=== PATIENT | male | born 1945 | race Caucasian/White ===

== ENCOUNTER 2016-09-03 01:46 | Emergency (ER) | payer MEDICARE ==
[~2016-09-03] VITALS: Ht 170.2 cm; Wt 67.4 kg
[2016-09-03 01:51] VITALS: BP 162/87; PULSE 52; RESP 16; TEMP 96.8; O2SAT 100
[2016-09-03 02:02] VITALS: BP 157/78; PULSE 51; RESP 18; TEMP 96.8; O2SAT 100
[2016-09-03] MEDS ORDERED: SODIUM CHLOR 0.9% 1000 ML INJ 1,000 ML IV SCH ×2 (02:04→03:00)
[2016-09-03 02:10] VITALS: O2SAT 100
[2016-09-03 02:14] LABS: AUTOMATED NEUTROPHIL # 6.4 TH/MM3 (1.8-7.7); BASOPHIL # 0.1 TH/MM3 (0-0.2); BASOPHIL % 0.7 % (0.0-2.0); EOSINOPHIL # 0.4 TH/MM3 (0-0.4); HEMATOCRIT 43.4 % (39.0-51.0); HEMO FLAGS DIFF FINAL; LYMPH % 26.8 % (9.0-44.0); LYMPHOCYTE # 2.8 TH/MM3 (1.0-4.8); MEAN CELL VOLUME 84.6 FL (80.0-100.0); MEAN CORPUSCULAR HEMOGLOBIN 27.9 PG (27.0-34.0); MEAN CORPUSCULAR HGB CONC 32.9 % (32.0-36.0); MONO % 7.3 % (0.0-8.0); NEUT % 61.2 % (16.0-70.0); PLATELET COUNT 252 TH/MM3 (150-450); RED BLOOD COUNT 5.14 MIL/MM3 (4.50-5.90); RED CELL DISTRIBUTION WIDTH 13.5 % (11.6-17.2); WHITE BLOOD COUNT 10.5 TH/MM3 (4.0-11.0)
[2016-09-03] MEDS ORDERED: SODIUM CHLORIDE 0.9% FLUSH 10 ML FLUSH IV FLUSH PRN (02:15)
[2016-09-03] MEDS ORDERED: PROCHLORPERAZINE INJ 10 MG/2 ML VIAL IV PUSH ONE (02:15)
[2016-09-03] MEDS ORDERED: MECLIZINE HCL 25 MG TAB PO ONE (02:15)
[2016-09-03 02:22] LABS: CHLORIDE 107 MEQ/L (98-107); POTASSIUM 3.5 MEQ/L (3.5-5.1); SODIUM (NA) 143 MEQ/L (136-145)
[2016-09-03] MEDS ORDERED: FINA5TAB2 PO (02:24)
[2016-09-03] MEDS ORDERED: ATOR20TA15 PO (02:24)
[2016-09-03] MEDS ORDERED: DOXA1TAB34 PO (02:24)
[2016-09-03 02:25] LABS: ANION GAP 8 MEQ/L (5-15); BICARBONATE 27.8 MEQ/L (21.0-32.0)
[2016-09-03 02:26] LABS: BLOOD UREA NITROGEN 12 MG/DL (7-18)
[2016-09-03 02:28] LABS: ALT (GPT) 68 U/L (12-78); AST (GOT) 96 U/L (15-37); GLOMERULAR FILTRATION RATE 86 ML/MIN (>89)
[2016-09-03 02:30] LABS: TOTAL BILIRUBIN ADULT 0.4 MG/DL (0.2-1.0)
[2016-09-03] MEDS ORDERED: LORazepam 2 MG/ML VIAL IV PUSH ONE (02:30)
[2016-09-03 02:31] LABS: ALKALINE PHOSPHATASE 115 U/L (45-117)
--- NOTE | 2016-09-03 02:51 | PD ---
HPI Chief Complaint: Dizziness Time Seen by Provider: 02:01 Travel History International Travel<30 days: No Contact w/Intl Traveler<30days: No Traveled to known affect area: No History of Present Illness HPI The patient is a 71-year-old male that experienced tinnitus at 3 PM yesterday. He denies any other focal neurologic change. The patient has a very minimal headache. He does experience tinnitus from time to time and has experienced tinnitus yesterday and, to a lesser extent, now. He denies any hearing loss. He has enjoyed excellent health. He denies any history of diabetes. He denies any chest pain or shortness of breath. He denies any ear pain. He states he always has a slow heartbeat. PFSH Past Medical History Cardiovascular Problems: Yes High Cholesterol: Yes Diminished Hearing: No Genitourinary: Yes (prostate) Hypertension: Yes Tetanus Vaccination: Unknown Influenza Vaccination: No Past Surgical History Appendectomy: Yes Social History Alcohol Use: No Tobacco Use: No Substance Use: No Allergies-Medications (Allergen,Severity, Reaction): Coded Allergies: No Known Allergies (Unverified , 09/03/16) Reported Meds & Prescriptions Reported Meds & Active Scripts Active Meclizine (Meclizine HCl) 25 Mg Tab 25 Mg PO TID PRN Ativan (Lorazepam) 1 Mg Tab 1 Mg PO Q8H PRN Prochlorperazine Maleate 10 Mg Tab 10 Mg PO Q6H PRN Reported Finasteride 5 Mg Tab 5 Mg PO DAILY Do not crush. Atorvastatin (Atorvastatin Calcium) 20 Mg Tab 20 Mg PO HS Doxazosin (Doxazosin Mesylate) 4 Mg Tab 4 Mg PO DAILY Review of Systems Except as stated in HPI: all other systems reviewed are Neg Physical Exam Narrative GENERAL: The patient is alert, oriented 3 in moderate apparent distress with his vertigo. He holds his head rigidly still. His vital signs show blood pressure 162/87 with a pulse of 52 but are otherwise normal. SKIN: Focused skin assessment warm/dry. HEAD: Atraumatic. Normocephalic. EYES: Pupils equal and round. No scleral icterus. No injection or drainage. ENT: No nasal bleeding or discharge. Mucous membranes pink and moist. The canals are clear and the tympanic membranes are clear. The patient has nystagmus was simply looking to one side, modified Hallpike maneuver was not done because was not necessary. It would have caused him considerable discomfort. NECK: Trachea midline. No JVD. CARDIOVASCULAR: Regular rate and rhythm. No murmur appreciated. RESPIRATORY: No accessory muscle use. Clear to auscultation. Breath sounds equal bilaterally. GASTROINTESTINAL: Abdomen soft, non-tender, nondistended. Hepatic and splenic margins not palpable. MUSCULOSKELETAL: No obvious deformities. No clubbing. No cyanosis. No edema. NEUROLOGICAL: Awake and alert. No obvious cranial nerve deficits. Motor grossly within normal limits. Normal speech and gait. PSYCHIATRIC: Appropriate mood and affect; insight and judgment normal. Data Data Last Documented VS Vital Signs Date Time Temp Pulse Resp B/P Pulse Ox O2 Delivery O2 Flow Rate FiO2 09/03/16 03:59 51 18 156/76 100 Room Air 09/03/16 02:02 96.8 Orders Complete Blood Count With Diff (09/03/16 02:04) Comprehensive Metabolic Panel (09/03/16 02:04) Iv Access Insert/Monitor (09/03/16 02:04) Ecg Monitoring (09/03/16 02:04) Oximetry (09/03/16 02:04) Sodium Chlor 0.9% 1000 Ml Inj (Ns 1000 M (09/03/16 02:04) Sodium Chloride 0.9% Flush (Ns Flush) (09/03/16 02:15) Prochlorperazine Inj (Compazine Inj) (09/03/16 02:15) Meclizine (Antivert) (09/03/16 02:15) Lorazepam Inj (Ativan Inj) (09/03/16 02:30) Sodium Chlor 0.9% 1000 Ml Inj (Ns 1000 M (09/03/16 03:00) Ct Brain W & W/O Iv Contrast (09/03/16 ) Iohexol 350 Inj (Omnipaque 350 Inj) (09/03/16 03:27) Labs Laboratory Tests Test 09/03/16 02:08 White Blood Count 10.5 TH/MM3 Red Blood Count 5.14 MIL/MM3 Hemoglobin 14.3 GM/DL Hematocrit 43.4 % Mean Corpuscular Volume 84.6 FL Mean Corpuscular Hemoglobin 27.9 PG Mean Corpuscular Hemoglobin 32.9 % Concent Red Cell Distribution Width 13.5 % Platelet Count 252 TH/MM3 Mean Platelet Volume 9.2 FL Neutrophils (%) (Auto) 61.2 % Lymphocytes (%) (Auto) 26.8 % Monocytes (%) (Auto) 7.3 % Eosinophils (%) (Auto) 4.0 % Basophils (%) (Auto) 0.7 % Neutrophils # (Auto) 6.4 TH/MM3 Lymphocytes # (Auto) 2.8 TH/MM3 Monocytes # (Auto) 0.8 TH/MM3 Eosinophils # (Auto) 0.4 TH/MM3 Basophils # (Auto) 0.1 TH/MM3 CBC Comment DIFF FINAL Differential Comment Sodium Level 143 MEQ/L Potassium Level 3.5 MEQ/L Chloride Level 107 MEQ/L Carbon Dioxide Level 27.8 MEQ/L Anion Gap 8 MEQ/L Blood Urea Nitrogen 12 MG/DL Creatinine 0.88 MG/DL Estimat Glomerular Filtration 86 ML/MIN Rate Random Glucose 97 MG/DL Calcium Level 8.5 MG/DL Total Bilirubin 0.4 MG/DL Aspartate Amino Transf 96 U/L (AST/SGOT) Alanine Aminotransferase 68 U/L (ALT/SGPT) Alkaline Phosphatase 115 U/L Total Protein 7.0 GM/DL Albumin 3.5 GM/DL [facility] Medical Decision Making Medical Screen Exam Complete: Yes Emergency Medical Condition: Yes Medical Record Reviewed: Yes Interpretation(s) The CBC is completely normal. The complete metabolic profile shows a GFR of 86 , AST of 96 but is otherwise unremarkable. The CT brain shows no evidence for intracranial hemorrhage, mass effect, mass lesions, edema or extra-axial fluid collections. There is extensive opacification of multiple sinuses, particularly the ethmoid sinuses. Differential Diagnosis Benign positional vertigo, viral labyrinthitis, cerebellopontine angle tumor highly unlikely, electrolyte disorder, anemia, renal insufficiency Narrative Course The patient has no evidence of any viral syndrome that could cause viral labyrinthitis. He appears to have benign positional vertigo. The CT scan shows chronic sinusitis as well. Diagnosis Primary Impression: Benign positional vertigo Additional Impression: Chronic sinusitis Additional Instructions: All the medicines that have prescribed can make you sleepy. Do not combine them with alcohol and be careful about driving on any of these medications. It is intended that you lay in bed, avoid moving your head and ride this out, this may take several days. Follow-up with her primary care physician next week. Scripts Meclizine 25 Mg Tab25 Mg PO TID PRN (VERTIGO) #30 TAB Ref 0 Prov:Jordi Singh MD 09/03/16 Lorazepam (Ativan)1 Mg Tab1 Mg PO Q8H PRN (DIZZINESS) #30 TAB Ref 0 Prov:Jordi Singh MD 09/03/16 Prochlorperazine Maleate 10 Mg Tab10 Mg PO Q6H PRN (NAUSEA OR VOMITING) #30 TAB Ref 0 Prov:Jordi Singh MD 09/03/16 Disposition: 01 DISCHARGE HOME Condition: Stable Jordi Singh MD Sep 03, 2016 02:51
[2016-09-03 03:00] VITALS: BP 157/78; PULSE 50; RESP 18; O2SAT 100
[2016-09-03] MEDS ORDERED: IOHEXOL 350 MG/ML 10 ML VIAL (for RAD DIAG) IV ONE (03:27)
--- NOTE | 2016-09-03 03:38 | RADRPT ---
EXAM DATE/TIME: 09/03/2016 03:11 [facility] COMPARISON: No previous studies available for comparison. INDICATIONS : Dizziness. Evaluate for tumor. IV CONTRAST: 85 cc Omnipaque 350 (iohexol) IV RADIATION DOSE: 64.84 CTDIvol (mGy) MEDICAL HISTORY : Cardiovascular disease. Hypertension. SURGICAL HISTORY : Appendectomy. ENCOUNTER: Initial ACUITY: 1 day PAIN SCALE: 0/10 LOCATION: cranial TECHNIQUE: Multiple contiguous axial images were obtained of the head. Using automated exposure control and adj ustment of the mA and/or kV according to patient size, radiation dose was kept as low as reasonably a chievable to obtain optimal diagnostic quality images. DICOM format image data is available electro nically for review and comparison. FINDINGS: There is no evidence for intracranial hemorrhage, mass effect, mass lesions, edema, or extra-axial fl uid collections. The visualized bony structures appear intact. The ventricles are normal size for t he patient's age. There are no signs of acute infarction for technique. The postcontrast portion is unremarkable. There is extensive opacification of multiple sinuses particularly the ethmoid sinuses. CONCLUSION: Unremarkable study except for chronic sinusitis. Annie Baltazar MD on September 03, 2016 at 3:36 Board Certified Radiologist. This report was verified electronically.
[2016-09-03] MEDS ORDERED: MECL-62 PO (03:57)
[2016-09-03] MEDS ORDERED: LORA-474 PO (03:57)
[2016-09-03] MEDS ORDERED: PROC10TA PO (03:57)
[2016-09-03 03:59] VITALS: BP 156/76; PULSE 51; RESP 18; O2SAT 100
[2016-09-03 04:59] VITALS: PULSE 52; RESP 18; O2SAT 99
== END 2016-09-03 05:00 | disposition home or self-care (01) ==
LOC: PHED 01:46
DX: H81.10 Benign paroxysmal vertigo, unspecified ear (principal); J32.9 Chronic sinusitis, unspecified; E78.00 Pure hypercholesterolemia, unspecified; I10 Essential (primary) hypertension
CPT/HCPCS: 70470; 80053; 85025; 96361; 96374; 96375; 99285; J0780; J2060; J7030; Q9967

== ENCOUNTER 2017-05-23 17:26 | Emergency (ER) | payer MEDICARE ==
[~2017-05-23 17:26] MED LIST: ATOR20TA15 PO; DOXA1TAB34 PO; FINA5TAB2 PO; LORA-474 PO; MECL-62 PO; PROC10TA PO
[2017-05-23 19:18] VITALS: BP 144/67; PULSE 53; RESP 18; TEMP 98.6; O2SAT 99
[2017-05-23] MEDS ORDERED: oxyCODONE/ACETAMINOPHEN 5 MG/325 MG TAB PO ONE (20:15)
[2017-05-23] MEDS ORDERED: KETOROLAC TROMETHAMINE 60 MG/2 ML (IM) VIAL IM ONE (20:15)
[2017-05-23 20:22] VITALS: BP 160/70; PULSE 56; RESP 18; O2SAT 100
[2017-05-23] MEDS ORDERED: HYDR-3516 PO (21:24)
[2017-05-23] MEDS ORDERED: NAPR-855 PO (21:24)
--- NOTE | 2017-05-23 21:24 | PD ---
HPI Chief Complaint: Back/ Neck Pain or Injury Time Seen by Provider: 20:01 Travel History International Travel<30 days: No Contact w/Intl Traveler<30days: No Traveled to known affect area: No History of Present Illness HPI 72-year-old man presents to the emergency department complaining of low back pain. He states symptoms been ongoing for the past several months since [place], but it been worse over the past couple days. States was especially bad today and was unable to really walk due to pain and spasms in his back. History of previous problems in the past that have been very intermittent. Sinus and ER doctor called him a prescription for Flexeril which has not really helped. He otherwise had been feeling generally well and healthy. No other complaints per History Past Medical History Narrative Medical Hypertension Tetanus Vaccination: > 5 Years Influenza Vaccination: No Social History Alcohol Use: No Tobacco Use: No Allergies-Medications (Allergen,Severity, Reaction): Coded Allergies: No Known Allergies (Unverified , 09/03/16) Reported Meds & Prescriptions Reported Meds & Active Scripts Active Meclizine (Meclizine HCl) 25 Mg Tab 25 Mg PO TID PRN Ativan (Lorazepam) 1 Mg Tab 1 Mg PO Q8H PRN Prochlorperazine Maleate 10 Mg Tab 10 Mg PO Q6H PRN Reported Finasteride 5 Mg Tab 5 Mg PO DAILY Do not crush. Atorvastatin (Atorvastatin Calcium) 20 Mg Tab 20 Mg PO HS Doxazosin (Doxazosin Mesylate) 4 Mg Tab 4 Mg PO DAILY Review of Systems Except as stated in HPI: all other systems reviewed are Neg Physical Exam Narrative GENERAL: Well-developed, well-nourished, no acute distress. SKIN: Warm and dry. CARDIOVASCULAR: Warm and well perfused. RESPIRATORY: Normal rate and effort. MUSCULOSKELETAL: Normal appearance of back and bilateral lower extremities. No ecchymosis, swelling, bruising. No rashes. Normal muscle bulk and tone. NEUROLOGICAL: Strength full 5/5 and equal in bilateral lower extremities in proximal and distal muscle groups. 5/5 in large toe flexion and extension. Sensation is intact to light touch throughout. PSYCHIATRIC: Appropriate mood and affect; insight and judgment normal. Data Data Last Documented VS Vital Signs Date Time Temp Pulse Resp B/P (MAP) Pulse Ox O2 Delivery O2 Flow Rate FiO2 3/19/18 20:22 56 18 160/70 (100) 100 05/23/17 19:18 98.6 Orders Orders Spine, Lumbar Comp W/Obliq (05/23/17 ) Ed Poc Ultrasound (05/23/17 ) Ketorolac Inj (Toradol Inj) (05/23/17 20:15) Oxycodone-Acetamin 5-325 Mg (Percocet (05/23/17 20:15) MDM Medical Decision Making Medical Screen Exam Complete: Yes Emergency Medical Condition: Yes Interpretation(s) [id number] ultrasound: Focused transabdominal ultrasound performed by me at the bedside evaluate for AAA. No AAA. Differential Diagnosis Strain or sprain, fracture, AAA, renal lithiasis, spinal stenosis, malignancy, other Narrative Course Medical decision making This 72-year-old man presents to the emergency department complaining of acute severe low back pain. History of some problems in the past, but not persistent or severe. Will check x-ray. Expect it will show degenerative disease. Bedside ultrasound does not show AAA. Recommend outpatient follow-up. Diagnosis Primary Impression: Acute low back pain Additional Instructions: Take naproxen as prescribed. Take Flexeril as previously prescribed, or Percocet as needed for severe pain. Follow with her primary doctor in the next 2-4 days. Return to the emergency department for any numbness tingling weakness or any other new or worsening symptoms. Med/Other Pt SpecificInfo: Prescription(s) given Scripts Hydrocodone/Acetaminophen (Hydrocodone-Acetamin 5-325 mg) 5 Mg-325 Mg Tablet 1 TAB PO Q6HR, #20 Prov: Blayne Gaspar MD 05/23/17 Naproxen (Naproxen) 375 Mg Tab 375 MG PO BID, #14 TAB 0 Refills Prov: Blayne Gaspar MD 05/23/17 Disposition: 01 DISCHARGE HOME Condition: Stable Blayne Gaspar MD May 23, 2017 21:24
--- NOTE | 2017-05-23 21:33 | RADRPT ---
EXAM DATE/TIME: 05/23/2017 20:36 [facility] COMPARISON: No previous studies available for comparison. INDICATIONS : Severe low back pain with no history of trauma. MEDICAL HISTORY : Cardiovascular disease. Hypertension SURGICAL HISTORY : Appendectomy. ENCOUNTER: Initial ACUITY: 1 day PAIN SCORE: 10/10 LOCATION: Bilateral low back FINDINGS: There are five non-rib bearing vertebral bodies. Moderate degenerative disc disease with prominent os teophytes. Moderate facet arthropathy. CONCLUSION: 1. Moderate degenerative disc disease. No acute findings. Jovani De Santiago MD on May 23, 2017 at 21:26 Board Certified Radiologist. This report was verified electronically.
== END 2017-05-23 22:41 | disposition home or self-care (01) ==
LOC: NEPD 17:26
DX: M51.36 Other intervertebral disc degeneration, lumbar region (principal); I10 Essential (primary) hypertension; Z79.899 Other long term (current) drug therapy
CPT/HCPCS: 72110; 96372; 99284; J1885